=== PATIENT | male | born 1945 | race Two or more races ===

== ENCOUNTER 2018-08-15 07:15 | Emergency (ER) | payer OTHER ==
[~2018-08-15] VITALS: Ht 177.8 cm; Wt 83.0 kg
== END 2018-08-15 14:25 | disposition home or self-care (01) ==
LOC: ER 07:15
DX: J45.998 Other asthma (principal); J11.1 Influenza due to unidentified influenza virus with other respiratory manifestations

== ENCOUNTER 2021-11-18 12:35 | Outpatient (CLI) | payer OTHER | END 2021-11-18 13:35 | disposition home or self-care (01) | LOC: ASH CLINIC 12:35 | PROVIDERS: ATTEND Emergency Medicine | DX: U07.1 COVID-19 (principal) ==